=== PATIENT | male | born 2000 | race Two or more races ===

== ENCOUNTER 2025-07-06 11:33 | Emergency (ER) | payer OTHER, SELFPAY ==
[2025-07-06 11:36] VITALS: BP 140/88; PULSE 71; TEMP 36.9; O2SAT 100; BMI 26.6
--- NOTE | 2025-07-06 11:44 | ED.GENADUL1 ---
HPI HPI - General Adult General Chief complaint: Wound/Laceration Stated complaint: LACERATION R HAND Time Seen by Provider: 07/06/25 11:36 Source: patient Mode of arrival: walk-in Limitations: no limitations History of Present Illness HPI narrative: 24-year-old male presented to the emergency department for a chief complaint of laceration. He sustained a laceration on his right hand at work on a sharp edge of metal. No metal shavings were involved. No weakness or numbness in his fingers. He has had a tetanus shot within the last 10 years. No other injury was sustained. Related Data Home Medications ?Medication ?Instructions ?Recorded ?Confirmed No Known Home Medications 07/06/25 07/06/25 Allergies Allergy/AdvReac Type Severity Reaction Status Date / Time No Known Drug Allergies Allergy Verified 07/06/25 11:35 Opioid HPI Opioid Management Most Recent Opioid Data: Last Pain Scale 4 Today, 11:36 Review of Systems ROS Narrative A ten point review of systems is negative except as noted above. PFSH PFSH Social History Little interest or pleasure in doing things: not at all Feeling down, depressed, or hopeless: not at all Exam Narrative Exam Narrative: Nurses note and vital signs reviewed General:The patient appears well and in no apparent distress.Patient is resting comfortably on cart. Skin:Warm, dry, no pallor noted.There is no rash noted. Head:Normocephalic, atraumatic Eye: Normal conjunctiva, no drainage Ears, Nose, Mouth, and Throat: oral mucosa is moist. Nares patent. Cardiovascular:Regular Rate and Rhythm Respiratory:Patient is in no distress, no accessory muscle use GI:Normal bowel sounds, no tenderness to palpation, no masses appreciated.No rebound, guarding, or rigidity noted. Musculoskeletal: There is a 5 cm laceration on the right hand, ulnar side. Fingers have full range of motion. Sensation intact. Neurological:A&O, normal speech Psychiatric:Cooperative Constitutional Vital Signs, click to edit/add: Last Vital Signs Temp 98.4 F 07/06/25 11:36 Pulse 71 07/06/25 11:36 Resp 16 07/06/25 11:36 BP 140/88 07/06/25 11:36 Pulse Ox 100 07/06/25 11:36 O2 Del Method Room Air 07/06/25 11:36 Course Vital Signs Vital signs: Vital Signs Temperature 98.4 F 07/06/25 11:36 Pulse Rate 71 07/06/25 11:36 Respiratory Rate 16 07/06/25 11:36 Blood Pressure 140/88 07/06/25 11:36 Pulse Oximetry 100 07/06/25 11:36 Oxygen Delivery Method Room Air 07/06/25 11:36 Temperature 98.4 F 07/06/25 11:36 Pulse Rate 71 07/06/25 11:36 Respiratory Rate 16 07/06/25 11:36 Blood Pressure 140/88 07/06/25 11:36 Pulse Oximetry 100 07/06/25 11:36 Oxygen Delivery Method Room Air 07/06/25 11:36 Medical Decision Making MDM Narrative Medical decision making narrative: The following procedure was performed by me. Local infiltration was carried out with 1% lidocaine without epinephrine resulting in complete skin anesthesia. The area was prepped with Betadine x 3 and draped sterilely and explored for foreign bodies. None were found. The wound was then closed with eight 4-0 Ethilon sutures resulting in good skin reapproximation and complete hemostasis. No complications. He tolerated the procedure well. Sutures are to be removed in 10 days. Tetanus is already up-to-date. Treatment diagnosis and follow-up were discussed with the patient. Differential Diagnosis Differential Diagnosis: Laceration, tendon injury Discharge Plan Discharge Chief Complaint: Wound/Laceration Clinical Impression: Laceration of right hand Patient Disposition: Home, Self-Care Time of Disposition Decision: 12:16 Condition: Good Mode of Transportation: Private Vehicle Prescriptions / Home Meds: No Action No Known Home Medications Print Language: Mongolian Instructions: Laceration (ED) Additional Instructions: Sutures to be removed in 10 days. Leave dressing on for 24 hours. Remove and apply bandage daily. Referrals: Physician,Non-Staff, MD [Primary Care Provider] - 1 week
[2025-07-06] MEDS: LIDOCAINE HCL 1% 100 MG/10 ML MDV INJ (12:39)
== END 2025-07-06 12:40 | disposition home or self-care (01) ==
PROVIDERS: Emergency Provider Emergency Medicine
DX: S61.411A Laceration without foreign body of right hand, initial encounter (principal); W26.8XXA Contact with other sharp object(s), not elsewhere classified, initial encounter
CPT/HCPCS: 12002; 99282

== ENCOUNTER 2025-07-17 07:38 | Emergency (ER) | payer OTHER, SELFPAY ==
[2025-07-17 07:44] VITALS: BP 145/87; PULSE 77; TEMP 36.4; O2SAT 100; BMI 26.6
--- NOTE | 2025-07-17 08:06 | ED.RECABL1 ---
HPI - Recheck/Abnormal Lab/Rx General Chief Complaint: Recheck/Abnormal Lab/Rx Stated Complaint: SUTURE REMOVAL Time Seen by Provider: 07/17/25 07:42 Source: patient Mode of arrival: walk-in Limitations: no limitations History of Present Illness HPI narrative: Patient presenting to the ER for removal of stitches from his right hand laceration that he sustained almost 11 days ago, he denies any acute complaint Related Data Home Medications ?Medication ?Instructions ?Recorded ?Confirmed No Known Home Medications 07/06/25 07/17/25 Allergies Allergy/AdvReac Type Severity Reaction Status Date / Time No Known Drug Allergies Allergy Verified 07/17/25 07:44 Review of Systems ROS Status of ROS 10 or more systems reviewed and unremarkable except as noted in history and below PFSH PFSH Social History Little interest or pleasure in doing things: not at all Feeling down, depressed, or hopeless: not at all Exam Narrative Exam Narrative: Nurses notes and vital signs reviewed and patient is not hypoxic. General: Well-appearing and in no apparent distress. Right hand exam: The patient have a laceration that is healing well on the lateral aspect of the hand almost linear with 8 stitches that are intact and clean no signs of infection no redness no hotness no drainage Neurological: A&O x4. No cranial nerve dysfunction observed. No truncal ataxia. Moves all extremities. Sensation intact. Psychiatric: Cooperative and interactive. Normal mood and affect. Constitutional Vital Signs, click to edit/add: Last Vital Signs Temp 97.6 F 07/17/25 07:44 Pulse 77 07/17/25 07:44 Resp 16 07/17/25 07:44 BP 145/87 H 07/17/25 07:44 Pulse Ox 100 07/17/25 07:44 O2 Del Method Room Air 07/17/25 07:44 Course Vital Signs Vital signs: Vital Signs Temperature 97.6 F 07/17/25 07:44 Pulse Rate 77 07/17/25 07:44 Respiratory Rate 16 07/17/25 07:44 Blood Pressure 145/87 H 07/17/25 07:44 Pulse Oximetry 100 07/17/25 07:44 Oxygen Delivery Method Room Air 07/17/25 07:44 Temperature 97.6 F 07/17/25 07:44 Pulse Rate 77 07/17/25 07:44 Respiratory Rate 16 07/17/25 07:44 Blood Pressure 145/87 H 07/17/25 07:44 Pulse Oximetry 100 07/17/25 07:44 Oxygen Delivery Method Room Air 07/17/25 07:44 MDM - Recheck/Abnormal Lab/Rx MDM Narrative Medical decision making narrative: 8 stitches removed and the wound is clean the patient to keep monitoring for any new symptoms The patient to follow-up with the primary care within 2 to 3 days and to come back to the ER in case of any worsening of the current symptoms or any new symptoms or concerns Discharge Plan Discharge Chief Complaint: Recheck/Abnormal Lab/Rx Clinical Impression: Encounter for removal of sutures Patient Disposition: Home, Self-Care Time of Disposition Decision: 08:06 Condition: Good Prescriptions / Home Meds: No Action No Known Home Medications Print Language: [place]ese Instructions: Stitches Removal (ED) Referrals: Physician,Non-Staff, MD [Primary Care Provider] - 1 week
== END 2025-07-17 08:27 | disposition home or self-care (01) ==
PROVIDERS: Emergency Provider Emergency Medicine
DX: S61.411D Laceration without foreign body of right hand, subsequent encounter (principal); X58.XXXD Exposure to other specified factors, subsequent encounter
CPT/HCPCS: 99281